=== PATIENT | male | born 1990 | race Caucasian/White ===

== ENCOUNTER 2017-06-09 19:15 | Emergency (ER) | payer MEDICAID, SELFPAY ==
[2017-06-09 19:15] VITALS: BP 144/99; PULSE 65; RESP 16; TEMP 36.8; O2SAT 99; BMI 25.0
--- NOTE | 2017-06-09 20:17 | ED.VISSUMM ---
- ER Visit Summary Date of Service: 06/09/17 Chief Complaint: Right lower jaw dental pain and swelling. History of Present Illness: The patient is a 27 M past medical history. Patient states he has an allergy to penicillin which is actually nausea and vomiting. States that he fractured his right lower molar several months ago. In the last 2 days he developed pain and swelling. No trouble swallowing. No fever. Physical Examination: Well appearing young male. Vital signs are stable afebrile. No acute distress. H EENT exam moist wheeze membranes. Posterior pharynx unremarkable. No trouble swallowing or breathing. His right lower molar is a large cavity and it is mildly tender palpation and has gingival swelling on the outside in the outside of his jaw. There is no fluctuance. There is nothing to drain at this time. He has no trouble opening his and closing his mouth. No trouble swallowing or breathing. No trismus. Neck nontender no lymphadenopathy. Lungs clear to auscultation. Heart regular rate and rhythm no murmur. Otherwise exam unremarkable. Test Results: None Emergency Department Course and Treatment: P.o. clindamycin. Follow-up with [facility]. Treatment Plan: No follow-up. Motrin and Tylenol for pain. Clindamycin. Disposition: Discharge Impression: Right lower dental cavity and abscess. This note was generated with [employer] dictation software. It may contain incorrect words, spelling, and punctuation that were not noted in review of the chart prior to signing ED Disposition - Plan for ED Patient: Chief Complaint: Dental Referrals: Care Physician,No Primary [Primary Care Provider] -
--- NOTE | 2017-06-09 20:19 | ED.DEP ---
ED Disposition - Plan for ED Patient: Disposition: Home or Assisted Living Chief Complaint: Dental Instructions: Dental Abscess Prescriptions: Clindamycin [Cleocin] 300 mg PO 4X/DAY 10 Days cap Referrals: Cesilia Tapia [NON-STAFF] - As soon as possible Additional Instructions: Clindamycin antibiotic for your dental abscess. Follow-up with a dentist soon as possible. Warm salt water gargling. Return getting a lot worse. Tylenol and Motrin for pain.
[2017-06-09] MEDS: Clindamycin HCl 150 MG Capsule 300 MG PO (20:26)
--- NOTE | 2017-06-09 20:28 | ED.RN ---
DISCHARGE INSTRUCTIONS GIVEN TO AND REVIEWED WITH PATIENT, PATIENT DENIES QUESTIONS OR CONCERNS AND VOICES UNDERSTANDING OF DISCHARGE INSTRUCTIONS. PT AMBULATES OUT OF ROOM WITHOUT DIFFICULTY.
== END 2017-06-09 20:29 | disposition home or self-care (01) ==
PROVIDERS: Emergency Provider Emergency Medicine
DX: K04.7 Periapical abscess without sinus (principal); K02.9 Dental caries, unspecified; S02.5XXA Fracture of tooth (traumatic), initial encounter for closed fracture; X58.XXXA Exposure to other specified factors, initial encounter; Y93.9 Activity, unspecified; Y92.9 Unspecified place or not applicable; Y99.9 Unspecified external cause status; Z88.0 Allergy status to penicillin
CPT/HCPCS: 99283